=== PATIENT | male | born 1980 | race Caucasian/White ===

== ENCOUNTER 2021-04-04 15:57 | Inpatient (IN) ==
[2021-04-04] MEDS ORDERED: DIPH/TET/ACEL PERT BOOSTER VACCINE 0.5 ML VIAL IM ONE (16:20)
[2021-04-04] MEDS ORDERED: HYDROmorphone 2 MG/1 ML VIAL IV STA (16:21)
[2021-04-04] MEDS ORDERED: ONDANSETRON 4 MG/2 ML VIAL IV ONE (16:21)
[2021-04-04 16:34] LABS: Basophils # 0.1 10*3/uL (0.0-0.2); Basophils % 0.8 % (0.0-0.8); Eosinophils # 0.2 10*3/uL (0.0-0.87); Eosinophils % 3.2 % (0.00-10.9); Hematocrit 47.5 VOL% (42.0-52.0); Hemoglobin 15.6 GM/DL (14.0-18.0); Immature Granulocytes % 0.3 %; Immature Granulocytes Absolute 0.02 #; Lymphocytes % 30.4 % (21.2-54.2); Mean Corpuscular HGB Conc 32.8 GM/DL (32-36); Mean Platelet Volume 11.3 FL (9.6-12.0); Monocytes % 9.5 % (1.7-12.7); Neutrophils % 55.8 % (38.7-73.9); Platelet Count 225 T/CUMM (130-400); Red Cell Distribution Width 13.2 % (9.3-17.3); White Blood Count 6.7 T/CUMM (4-12)
[2021-04-04 16:45] LABS: Alanine Aminotransferase 80 U/L (16-61); Albumin 4.3 G/DL (3.4-5.0); Alkaline Phosphatase 71 U/L (45-117); Aspartate Amino Transferase 31 U/L (0-37); Bilirubin,Total < 0.39 MG/DL (0.2-1.0); Blood Urea Nitrogen 15 MG/DL (7-18); Calcium 8.9 MG/DL (8.5-10.1); Carbon Dioxide 27 MMOL/L (21-32); Estimated Glom Filtration Rate 99 ML/MIN; Glucose 130 MG/DL (74-106); Osmolality,Calculated 275.8 MOS/KG (273-304); Potassium 3.8 MMOL/L (3.5-5.1); Sodium 137 MMOL/L (136-145); Total Protein 7.9 G/DL (6.4-8.2)
[2021-04-04] MEDS ORDERED: ceFAZolin 2,000 MG/50 ML DUPLEX IV ONE (17:06)
[2021-04-04] MEDS ORDERED: fentaNYL 100 MCG/2 ML VIAL ONE (17:10)
[2021-04-04] MEDS ORDERED: propofoL 200 MG/20 ML VIAL IV ONE (17:12)
[2021-04-04] MEDS ORDERED: ROCURONIUM 50 MG/5 ML VIAL IV ONE (17:12)
[2021-04-04] MEDS ORDERED: LIDOCAINE 2% 5 ML VIAL ONE (17:12)
[2021-04-04] MEDS ORDERED: ONDANSETRON 4 MG/2 ML VIAL ONE (17:12)
[2021-04-04] MEDS ORDERED: SUCCINYLCHOLINE 200 MG/10 ML VIAL ONE (17:12)
[2021-04-04] MEDS ORDERED: DEXMEDETOMIDINE 200 MCG/2 ML VIAL ONE (17:14)
[2021-04-04 17:27] LABS: Alanine Aminotransferase 79 U/L (16-61); Albumin 4.4 G/DL (3.4-5.0); Alkaline Phosphatase 69 U/L (45-117); Aspartate Amino Transferase 32 U/L (0-37); Bilirubin,Total < 0.39 MG/DL (0.2-1.0); Blood Urea Nitrogen 15 MG/DL (7-18); Calcium 8.9 MG/DL (8.5-10.1); Carbon Dioxide 27 MMOL/L (21-32); Estimated Glom Filtration Rate 109 ML/MIN; Glucose 128 MG/DL (74-106); Osmolality,Calculated 277.7 MOS/KG (273-304); Potassium 4.1 MMOL/L (3.5-5.1); Sodium 138 MMOL/L (136-145); Total Protein 7.6 G/DL (6.4-8.2)
[2021-04-04] MEDS ORDERED: GENTAMICIN 80 MG/2 ML VIAL ONE (17:47)
[2021-04-04] MEDS ORDERED: ceFAZolin 1,000 MG VIAL ONE ×2 (17:47)
[2021-04-04] MEDS ORDERED: SODIUM CHLORIDE 0.9% 100 ML IV ONE (18:08)
[2021-04-04] MEDS ORDERED: ACETAMINOPHEN INJ 1,000 MG/100 ML VIAL IV ONE (18:08)
[2021-04-04] MEDS ORDERED: FAMOTIDINE 20 MG/2 ML VIAL IV ONE (18:17)
[2021-04-04] MEDS ORDERED: NEOSTIGMINE 10 MG/10 ML VIAL ONE (18:37)
[2021-04-04] MEDS ORDERED: GLYCOPYRROLATE 0.4 MG/2 ML VIAL ONE (18:37)
[2021-04-04] MEDS ORDERED: DEXAMETHASONE 4 MG/1 ML VIAL ONE ×2 (18:46)
[2021-04-04] MEDS ORDERED: MAGNESIUM HYDROXIDE SUSP 30 ML UDCUP PO PRN (18:50)
[2021-04-04] MEDS ORDERED: DESFLURANE 1 UNIT/15 MINUTE INH ONE (18:52)
[2021-04-04] MEDS ORDERED: ONDANSETRON 4 MG/2 ML VIAL IV PRN (19:25)
[2021-04-04] MEDS ORDERED: HYDROmorphone 2 MG/1 ML VIAL IV PRN (19:25)
[2021-04-04] MEDS: DEXTROSE 5% NACL 0.45% 1,000 ML IV SCH (21:34)
[2021-04-04] MEDS: GENTAMICIN IV SCH (21:35)
[2021-04-04] MEDS: SODIUM CHLORIDE 0.9% IV SCH (21:35)
[2021-04-05] MEDS: ceFAZolin 2,000 MG/50 ML DUPLEX IV SCH ×3 (03:36→19:12)
[2021-04-05] MEDS: DEXTROSE 5% NACL 0.45% 1,000 ML IV SCH ×3 (07:26→13:30)
[2021-04-05] MEDS: GENTAMICIN IV SCH (20:27)
[2021-04-05] MEDS: SODIUM CHLORIDE 0.9% IV SCH (20:27)
[2021-04-06] MEDS: ceFAZolin 2,000 MG/50 ML DUPLEX IV SCH ×3 (01:13→18:13)
[2021-04-06] MEDS: MAGNESIUM HYDROXIDE SUSP 30 ML UDCUP PO PRN ×2 (09:11→15:03)
[2021-04-06] MEDS: SODIUM CHLORIDE 0.9% IV SCH (20:24)
[2021-04-06] MEDS: GENTAMICIN IV SCH (20:24)
[2021-04-07] MEDS: ceFAZolin 2,000 MG/50 ML DUPLEX IV SCH ×2 (02:42→09:23)
[2021-04-07 07:02] VITALS: BP 136/69
== END 2021-04-07 10:35 | disposition home or self-care (01) | DRG 493 ==
LOC: N.ED 15:57 → N.EDINP 17:32 → N.3E 19:44
PROVIDERS: ADMIT Orthopaedic Surgery; ATTEND Orthopaedic Surgery